=== PATIENT | female | born 2000 | race American Indian/Alaskan Native ===

== ENCOUNTER 2021-10-07 00:41 | Emergency (ER) | payer SELFPAY ==
[2021-10-07 05:00] LABS: Basophils % (Auto) 0.2 % (0.0-1.8); Eosinophils % (Auto) 0.3 % (0.0-4.3); Hematocrit 36.7 % (30.3-42.9); Hemoglobin 12.1 gm/dl (10.1-14.3); Lymphocytes # (Auto) 0.7 K/mm3 (1.2-5.4); Lymphocytes % (Auto) 8.9 % (13.4-35.0); Mean Corpuscular HGB Conc 33 % (30-34); Mean Corpuscular Volume 93 fl (79-97); Monocytes # (Auto) 0.6 K/mm3 (0.0-0.8); Monocytes % (Auto) 8.4 % (0.0-7.3); Platelet Count 250 K/mm3 (140-440); Red Blood Count 3.95 M/mm3 (3.65-5.03); Red Cell Distribution Width 12.5 % (13.2-15.2)
[2021-10-07 05:11] LABS: Blood Urea Nitrogen 6 mg/dL (7-17); Calcium 9.2 mg/dL (8.4-10.2); Hemolysis Index 47
[2021-10-07 05:14] LABS: BUN/Creatinine Ratio 10
--- NOTE | 2021-10-07 07:06 | XRay Report ---
CHEST 2 VIEWS INDICATION / CLINICAL INFORMATION: dizziness and tachycardia. COMPARISON: None available. FINDINGS: SUPPORT DEVICES: None. HEART / MEDIASTINUM: No significant abnormality. LUNGS / PLEURA: No significant pulmonary abnormality. No significant pleural effusion. No pneumothora x. ADDITIONAL FINDINGS: No significant additional findings. IMPRESSION: 1. No acute abnormality of the chest. Signer Name: Foster Dorantes MD Signed: 10/07/2021 7:02 AM Workstation Name: [id number]
--- NOTE | 2021-10-07 07:09 | Emergency Department Report ---
ED Female HPI - General Chief complaint: Nausea/Vomiting/Diarrhea Stated complaint: FEVER/HEADACHE/VOMITING Time Seen by Provider: 10/07/21 04:32 Source: patient Mode of arrival: Ambulatory Limitations: No Limitations - History of Present Illness Initial comments: 21-year-old -[place] female with no significant past medical history [facility] emerge department complaining of a 3-month history of vaginal bleeding associated with cramping aches and pains rating across the pelvic and back region which she thinks may be related to her recent control switch patient. Patient was treated taking oral medication will see had discontinued and had an IUD placed and since that has been having some fluctuating of vaginal bleeding. She has follow-up with [facility] on [facility] occasions and was told her there was] she is growing more concerned of the continued bleeding. She reports no vaginal discharge, no pelvic orders, no hematuria or dysuria. No fever, chills, sweats has had/episodes of nausea and a dull throbbing headache which she thinks may be secondary to anemia she reports a history of anemia and thinks that due to the bleeding she it may have exacerbated itself at this present time. Reports no chest pain, no palpitations no hemoptysis, no hematemesis, no hematochezia. Severity: mild Quality: dull Consistency: constant Improves with: none Worsens with: none Are you Now?: No - Related Data Sexually active: Yes Previous Rx's Medication Instructions Recorded Last Taken Type Butalb/Acetaminophen/Caffeine 1 cap PO Q6HR PRN #14 cap 10/07/21 Unknown Rx [Fioricet 50-300-40 mg CAP] Ketorolac [Toradol] 10 mg PO Q6H PRN #10 tablet 10/07/21 Unknown Rx medroxyPROGESTERone ACETATE 10 mg PO QDAY #10 tablet 10/07/21 Unknown Rx [Provera] Allergies Allergy/AdvReac Type Severity Reaction Status Date / Time No Known Allergies Allergy Verified 10/07/21 01:33 ED Review of Systems ROS: Stated complaint: FEVER/HEADACHE/VOMITING Other details as noted in HPI Comment: All other systems reviewed and negative ED Past Medical Hx - Past Medical History Previous Medical History?: No - Surgical History Past Surgical History?: No - Medications Home Medications: Home Medications Medication Instructions Recorded Confirmed Last Taken Type Butalb/Acetaminophen/Caffeine 1 cap PO Q6HR PRN #14 cap 10/07/21 Unknown Rx [Fioricet 50-300-40 mg CAP] Ketorolac [Toradol] 10 mg PO Q6H PRN #10 tablet 10/07/21 Unknown Rx medroxyPROGESTERone ACETATE 10 mg PO QDAY #10 tablet 10/07/21 Unknown Rx [Provera] ED Physical Exam - General Limitations: No Limitations General appearance: alert, in no apparent distress - Head Head exam: Present: atraumatic, normocephalic, normal inspection - Eye Eye exam: Present: normal appearance, PERRL, EOMI. Absent: nystagmus Pupils: Present: normal accommodation - ENT ENT exam: Present: normal exam, normal orophraynx, mucous membranes moist, TM's normal bilaterally - Neck Neck exam: Present: normal inspection - Respiratory Respiratory exam: Present: normal lung sounds bilaterally. Absent: respiratory distress, wheezes, rales, rhonchi - Cardiovascular Cardiovascular Exam: Present: regular rate, normal rhythm. Absent: systolic murmur, diastolic murmur, rubs, gallop - GI/Abdominal GI/Abdominal exam: Present: soft, normal bowel sounds. Absent: tenderness, guarding, rebound - Extremities Exam Extremities exam: Present: normal inspection - Back Exam Back exam: Present: normal inspection - Neurological Exam Neurological exam: Present: alert, oriented X3, CN II-XII intact, normal gait, other (GCS 15) - Psychiatric Psychiatric exam: Present: normal affect, normal mood - Skin Skin exam: Present: warm, dry, intact, normal color. Absent: rash ED Course Vital Signs 10/07/21 10/07/21 01:33 05:26 Temperature 99.5 F Pulse Rate 115 H Pulse Rate [ 99 H Lying] Pulse Rate [ 104 H Sitting] Pulse Rate [ 113 H Standing] Respiratory 17 Rate Blood Pressure 145/72 [Lying] Blood Pressure 145/90 [Right] Blood Pressure 138/72 [Sitting] Blood Pressure 138/81 [Standing] O2 Sat by Pulse 98 Oximetry ED Medical Decision Making - Lab Data Result diagrams: 10/07/21 04:37 10/07/21 04:37 Critical care attestation.: If time is entered above; I have spent that time in minutes in the direct care of this critically ill patient, excluding procedure time. ED Disposition Disposition: 01 HOME / SELF CARE / HOMELESS Condition: Stable Instructions: Metrorrhagia, Dysfunctional Uterine Bleeding Additional Instructions: Problem 1 headache you have been evaluated in the emergency department today for headache. Your evaluation did not show evidence of medical conditions requiring emergent intervention at this time, and your pain improved with medication. We recommend that you take Motrin and Tylenol as needed for your pain. If needed you can alternate these medications so that you take 1 every 3 hours. To be sure to follow-up with your primary care provider within 2 days for Return to emergency department if you experience worsening uncontrolled pain, vision changes, recurrent vomiting, difficulty with normal activities, abnormal behavior, difficulty walking, numbness, weakness, or any other concerning symptoms. Prescriptions: Butalb/Acetaminophen/Caffeine [Fioricet 50-300-40 mg CAP] 1 cap PO Q6HR PRN #14 cap PRN Reason: headache medroxyPROGESTERone ACETATE [Provera] 10 mg PO QDAY #10 tablet Ketorolac [Toradol] 10 mg PO Q6H PRN #10 tablet PRN Reason: Pain Referrals: PRIMARY CARE, [Primary Care Provider] - 3-5 Days [facility] [Provider Group] - 3-5 Days
[2021-10-07 07:22] VITALS: BP 125/68
== END 2021-10-07 07:22 | disposition home or self-care (01) ==
LOC: ED 00:41
DX: N93.9 Abnormal uterine and vaginal bleeding, unspecified (principal); R10.9 Unspecified abdominal pain
CPT/HCPCS: 36415; 71046; 80048; 85025; 99283